=== PATIENT | male | born 1970 | race Caucasian/White ===

== ENCOUNTER 2020-11-17 09:42 | Outpatient (REF) | payer BC, SELFPAY ==
[2020-11-17 10:49] LABS: Alanine Aminotransferase 38 U/L (0-40); Blood Urea Nitrogen 29 mg/dL (9-16); Estimated Glomerular Filt Rate > 60
== END 2020-11-17 09:43 | disposition home or self-care (01) ==
LOC: HO.10HDL 09:42
PROVIDERS: Visit Provider Family Medicine
DX: E78.00 Pure hypercholesterolemia, unspecified (principal); Z79.899 Other long term (current) drug therapy
CPT/HCPCS: 36415; 82550; 82565; 84460; 84520

== ENCOUNTER 2020-12-09 07:11 | Day surgery (SDC) | payer BC, SELFPAY ==
--- NOTE | 2020-12-08 08:58 | HO.ANESPROP2 ---
Documented by User: Elizabeth Dias 12/08/20 08:58 HPI - Anesthesia Eval Consult details Narrative: 50yo M for Colonoscopy PMFSH Past Medical History Medical History Elevated cholesterol Social History Social History Smoking Status: Never smoker Second Hand Smoke Exposure: No Use of substances other than those prescribed or required for medical reasons: No Advance Directives: No Advance Directives Information Provided: Yes Meds Allergies Allergy/AdvReac Type Severity Reaction Status Date / Time codeine Allergy Mild Rash Verified 12/09/20 07:37 Home Medications Medication Instructions Recorded Confirmed Last Taken Type atorvastatin 1 tab PO DAILY 12/05/20 12/05/20 Unknown History Exam Exam Date and Time: December 08, 2020857 Assessment and Plan Assessment Anesthesia Assessment: Chart Reviewed Documented by User: Mona Villafuerte 12/09/20 07:55 PMFSH Past Medical History Medical History Elevated cholesterol Social History Social History Smoking Status: Never smoker Second Hand Smoke Exposure: No Use of substances other than those prescribed or required for medical reasons: No Advance Directives: No Advance Directives Information Provided: Yes Meds Allergies Allergy/AdvReac Type Severity Reaction Status Date / Time codeine Allergy Mild Rash Verified 12/09/20 07:37 Home Medications Medication Instructions Recorded Confirmed Last Taken Type atorvastatin 1 tab PO DAILY 12/05/20 12/05/20 Unknown History Exam Airway Mallampati Class: II TM Dist: >3cm Neck ROM: Full
[2020-12-08 10:56] VITALS: BMI 30.2
[2020-12-09 07:40] VITALS: BP 118/69; PULSE 76; RESP 16; TEMP 36.6; O2SAT 99; BMI 28.8
[2020-12-09] MEDS: Lactated Ringers 1,000 ML 100 ML IVCONT (07:46)
--- NOTE | 2020-12-09 09:31 | PM.OP ---
Brief Operative Note Date of Service: 12/09/20 Pre-op diagnosis: Screening Post-op diagnosis: other (Colon polyps) Procedure: Colonoscopy to cecum and TI with snare polypectomy Surgeon: Neymar Patel Anesthesia: MAC Estimated blood loss (mL): 2.0 Pathology: other (A. Ascending colon polyp B. Transverse colon polyp) Condition: stable Disposition: PACU
[2020-12-09 09:32] VITALS: BP 76/45; PULSE 68; RESP 16; TEMP 36.2; O2SAT 96
[2020-12-09 09:47] VITALS: BP 106/60; PULSE 71; RESP 16; TEMP 36.2; O2SAT 99
--- NOTE | 2020-12-09 10:06 | OP_ITS ---
SURGEON: eNymar Patel MD PREOPERATIVE DIAGNOSIS: Colorectal cancer screening. POSTOPERATIVE DIAGNOSIS: PROCEDURE PERFORMED: ESTIMATED BLOOD LOSS: COMPLICATIONS: ANESTHESIA: Monitored anesthesia care. ASSISTANTS: SPECIMENS: PROCEDURE: Colonoscopy to the cecum and terminal ileum with snare polypectomy. Full consent was obtained from him for this, including risks of bleeding and perforation. POSTOPERATIVE DIAGNOSES: Colorectal cancer screening, colon polyps, diverticulosis and internal hemorrhoids. DESCRIPTION OF PROCEDURE: The patient was placed in the left lateral decubitus position. The digital rectal exam revealed no abnormalities. The Olympus video pediatric colonoscope was entered into the rectum and advanced easily to the cecum. Once in the cecum, I did identify normal-appearing cecal pouch with appendiceal orifice and a normal-appearing ileocecal valve. The terminal ileum was cannulated and appeared normal. The scope withdrawn back in the colon. The entire cecum and ileocecal valve appeared normal. The scope was slowly withdrawn assessing all mucosal surfaces carefully. For the most part, preparation was excellent, although there were some small areas of some liquid stool, which were suctioned and irrigated away as best as possible. In the ascending colon and transverse colon were flat, but slightly raised polyps between 8 and 10 mm in diameter, which were each snared and recovered by suction. The polypectomy sites appeared clean, without any sign of residual polyp nor bleeding. I did not visualize any other polyps, colitis, nor angiodysplasia. There was a mild amount of sigmoid diverticulosis. In the rectum, scope was retroflexed visualizing internal hemorrhoids, but no other pathology. The rectal mucosa appeared normal. The scope was straightened and withdrawn from the patient. He tolerated the procedure well and was returned to recovery area in stable condition. IMPRESSION: 1. Colon polyps, status post snare polypectomy. 2. Diverticulosis. 3. Internal hemorrhoids. PLAN: The results of the pathology will be checked. If these are tubular adenoma, I would recommend a followup colonoscopy in 5 years. If they are only hyperplastic, I would recommend a followup colonoscopy in 10 years. He was advised not to use any aspirin and NSAIDs for 1 week. This has been discussed with his . MD VERNA Mittal/RONY / [id number] MOE
== END 2020-12-09 10:40 | disposition home or self-care (01) ==
PROVIDERS: PCP Family Medicine; Visit Provider Internal Medicine
PROC: 0DJD8ZZ Inspection of Lower Intestinal Tract, Via Natural or Artificial Opening Endoscopic (ICD-10-PCS; CPT 45378; principal; 2020-12-09 08:20)
DX: Z12.11 Encounter for screening for malignant neoplasm of colon (principal); D12.2 Benign neoplasm of ascending colon; D12.3 Benign neoplasm of transverse colon; K57.30 Diverticulosis of large intestine without perforation or abscess without bleeding; K64.8 Other hemorrhoids
CPT/HCPCS: 45385; 88305

== ENCOUNTER 2021-05-30 07:01 | Outpatient (REF) | payer BC, SELFPAY ==
[2021-05-30 11:57] LABS: Cholesterol 228 mg/dL; Glucose Fasting 96 mg/dL (60-99); HDL Cholesterol 46 mg/dL; LDL Cholesterol Calculated 166 mg/dl; Triglycerides 83 mg/dL
== END 2021-05-30 07:02 | disposition home or self-care (01) ==
LOC: HO.HMGCLDS 07:01
PROVIDERS: PCP Family Medicine; Visit Provider Family Medicine
DX: E78.00 Pure hypercholesterolemia, unspecified (principal); Z82.49 Family history of ischemic heart disease and other diseases of the circulatory system
CPT/HCPCS: 36415; 80061; 82947

== ENCOUNTER 2022-04-09 08:40 | Outpatient (REF) | payer BC, SELFPAY ==
[2022-04-09 13:04] LABS: Alanine Aminotransferase 64 U/L (0-40)
== END 2022-04-09 08:41 | disposition home or self-care (01) ==
LOC: HO.HMGCLDS 08:40
PROVIDERS: Visit Provider Family Medicine
DX: E78.00 Pure hypercholesterolemia, unspecified (principal); Z79.899 Other long term (current) drug therapy
CPT/HCPCS: 36415; 82550; 84460

== ENCOUNTER 2023-11-01 08:57 | Outpatient (REF) | payer BC, SELFPAY | END 2023-11-01 08:58 | disposition home or self-care (01) | LOC: HO.LAB 08:57 | PROVIDERS: PCP Family Medicine; Visit Provider Family Medicine | DX: E78.00 Pure hypercholesterolemia, unspecified (principal); Z79.01 Long term (current) use of anticoagulants | CPT/HCPCS: 36415; 82550; 84450; 84460 ==

== ENCOUNTER 2024-05-25 06:15 | Outpatient (REF) | payer BC, SELFPAY ==
[2024-05-25 10:38] LABS: Alanine Aminotransferase 30 U/L (0-40); Aspartate Amino Transferase 21 U/L (5-37); Cholesterol 149 mg/dL (<200); Glucose Fasting 104 mg/dL (60-99); Triglycerides 119 mg/dL (<150)
[2024-05-25 11:01] LABS: HDL Cholesterol 43 mg/dL (>40); LDL Cholesterol Calculated 83 mg/dL (<100)
== END 2024-05-25 06:16 | disposition home or self-care (01) ==
LOC: HO.HMGCLDS 06:15
PROVIDERS: PCP Family Medicine; Visit Provider Family Medicine
DX: E78.00 Pure hypercholesterolemia, unspecified (principal); Z79.899 Other long term (current) drug therapy; Z83.3 Family history of diabetes mellitus
CPT/HCPCS: 36415; 80061; 82550; 82947; 84450; 84460

== ENCOUNTER 2024-10-16 10:14 | Outpatient (AMB) | payer BC, SELFPAY ==
--- NOTE | 2024-10-16 10:11 | MHC.OFFVIS ---
Vital Signs 10/16/24 10:26 Height 5 ft 7 in Weight 201 lb BMI 31.5 BP 135/64 Blood Pressure Location Lt brachial Position Sitting Pulse 83 Intake Visit Reasons: cyst on back Intake Note: Patient is seen in office for evaluation of a cyst on the back. Pt c/o: onset yrs, increase in size, denies any redness, discharge or infection, discomfort to lay on it Industrial Cook Required: No Accompanied by: Self / Same As Patient Allergies codeine Allergy (Mild, Verified 10/16/24 10:25) Rash Medication List - Last Reconciled 10/16/24 by Chi Cloud MD atorvastatin 1 tab PO DAILY HPI Comments Details: 54-year-old male patient presenting with a skin cyst in the left back. He feels the cyst has been present for several years and has gradually increased in size. He reports his made him get it checked out. He denies a previous history of infections, bleeding or discharge from the site. [facility] Medical History Elevated cholesterol Social History Second Hand Smoke Exposure: No Review of Systems Const All systems reviewed & are unremarkable except as noted in HPI and below Denies chills, Denies fever(s), Denies headache(s), Denies poor appetite and Denies weakness ENT Denies headache(s) Card Denies chest pain, Denies irregular heart rhythm, Denies palpitations and Denies dyspnea Resp Denies cough, Denies excessive phlegm production and Denies dyspnea GI Denies abdominal pain, Denies bloating, Denies change in bowel habits, Denies constipation, Denies heartburn, Denies diarrhea, Denies nausea and Denies vomiting Denies difficulty urinating and Denies urinary frequency Musc Denies back pain, Denies muscle weakness and Denies numbness Skin/Breast Denies changing lesions and Denies unusual bruising Neuro Denies headache(s), Denies numbness, Denies paresthesias and Denies weakness Psych Denies anxiety and Denies depression Endo Denies palpitations Manjeet/Lymph Denies lymphadenopathy Physical Exam Const General: cooperative and no acute distress Nutritional Appearance: well nourished Orientation/consciousness: patient oriented x3 Limitations: no limitations HEENT Head: Yes normocephalic and Yes atraumatic Ears: hearing grossly normal bilaterally Resp Effort & Inspection: normal respiratory effort, no audible wheezes, no cough and no respiratory distress Cardio Jugular venous distension: no JVD GI Inspection: Yes normal to inspection Back/Spine/Pelvis Other: Left upper back with a 2 cm epidermal inclusion cyst with no evidence of abscess, erythema or tenderness. Back/spine/pelvis image: 1. 2 cm epidermal inclusion cyst left upper back. Skin Other: Warm, dry, no rash Neuro General: patient oriented x3 Extrem General: Yes no clubbing, cyanosis or edema Office Procedures Excision Details: Preoperative diagnosis: Epidermal inclusion cyst left upper back Postoperative diagnosis: Epidermal inclusion cyst left upper back Procedure: Excision of epidermal inclusion cyst left upper back Surgeon: Chi Cloud MD Bindery Machine Setter: None Anesthesia: Lidocaine 1% with epinephrine Indications for procedure: 2 cm epidermal inclusion cyst of left upper back Operative findings: Noninfected 2 cm epidermal inclusion cyst Specimen: Epidermal inclusion cyst left upper back Estimated blood loss: 1 mL Complications: None Procedure details: Patient was brought to the procedure room and placed in a prone position. The site of surgery was confirmed by the patient in the left upper back. After assuring informed consent the skin was prepped with Betadine and draped in a sterile fashion. Local anesthesia was then infiltrated in a transverse fashion. An elliptical incision oriented transversely was then created with a scalpel and carried out through subcutaneous tissue. Dissection was continued around the wall of the cyst and the cyst completely excised. This was sent to pathology for further examination. After assuring adequate hemostasis the skin was closed using interrupted 4-0 nylon sutures. Sterile dressings consisting of a 2 x 2 gauze and Tegaderm were then applied. The patient tolerated the procedure well and was discharged to home in stable condition. 96633-[id number]/arms/legs 1.1-2cm Procedure code (CPT) selection complete Assessment & Plan Assessment & Plan (1) Epidermal inclusion cyst: Code(s): L72.0 - Epidermal cyst Category: Medical Plan Status post excision of epidermal inclusion cyst today. The patient tolerated this well. He will return in 1 week for suture removal. Coding Level of Care Code New Pt Level 4 (82524) Diagnoses Epidermal inclusion cyst L72.0 CPT Codes Trunk/Arms/Legs - CPT: 82208-covxh/arms/legs 1.1-2cm ([id number])
--- OUTSIDE RECORDS SUMMARY | 2024-10-16 10:16 | XMS_ITS | Patient Health Record ---
Author Organization [facility] Address [address] [place] [id number] Care Team Providers Care Side Piece Coverer Name Role Phone Raul REYNOLDS, Cuco Primary Care Provider UnavailNeymar Lazar Unavailable [phone] ALLERGIES Allergen (clinical drug ingredient) Drug/Non Drug Allergy documented on EMR Reaction Allergy Type Onset Date Status codeine Codeine Sulfate Unknown Drug Allergy A ctive REASON FOR REFERRAL No Information MEDICATIONS Medication SIG (Take, Route, Frequency, Duration) Notes Start Date End Date Status CoQ10 Active Multivitamin Active Estroven Active Ibuprofen as needed Active Tylenol PM Extra Strength Active Ipamorelin Acetate A ctive Atorvastatin Calcium 20 MG TAKE 1 TABLET BY MOUTH ONCE DAILY Oral for 30 Active IMMUNIZATIONS Vaccine Route Administration Date Status Comme nts Influenza Unknown 07/28/2020 Administered SOCIAL HISTORY Tobacco Use: Social History Observation Description Date Details (start date - stop date) Never Smoker NA - NA Sex Assigned At : Social History Observation Description Sex Assigned At Unknown Tobacco Use/Smoking Question Answer Notes Patient is a nonsmoker Alcohol Screen Question Answer Notes Did you have a drink contain ing alcohol in the past year? Yes How often did you have a dri nk containing alcohol in the past year? Never (0 point) How many drinks did you have on a typical day when you were drinking in the past year? 1 or 2 drinks (0 point) How often did you have 6 or more drinks on one occasion in the past year? Never (0 point) Points 0 Interpretation Negative PROBLEMS Problem Type ICD Code Onset Dates Problem Status W/U Status Risk SNOMED Code Notes Problem Encounter for screening for malignant neoplasm of colon (Z12.11) Active confirmed Screening for malignant neoplasm of colon (701412688) Problem Preprocedural examination (Z01.818) Active confirmed Preprocedural examination (850260194365737 ) PLAN OF TREATMENT Future Test Test Name Order Date COLONOSCOPY 11/17/2020 Insurance Providers Payer Name Payer Address Payer Phone Subscriber Number Group Number Insured Name Patient Relationship to Insured Coverage Start Date Coverage End Date [facility] [address] [place], [place] [id number] [phone] [id number] 00 JP RODRÍGUEZ Self - patient is the insured MEDICAL (GENERAL) HISTORY Medical History History ICD Code Seeing a weight loss/hormone doctor [place] for weight loss-Dr. Hilton Denies [place],DM,CVA,Lung disease,renal dise ase Hyperlipidemia Surgical History Surgery Date(Month/Year)
[2024-10-16 10:26] VITALS: BP 135/64; PULSE 83; BMI 31.5
== END 2024-10-16 10:50 | disposition home or self-care (01) ==
PROVIDERS: PCP Family Medicine; Referring Provider Family Medicine; Visit Provider Surgery
DX: L72.0 Epidermal cyst (principal)
CPT/HCPCS: 11402; 99203

== ENCOUNTER 2024-10-16 10:14 | Outpatient (REF) | payer BC, SELFPAY | END 2024-10-16 10:15 | disposition home or self-care (01) | LOC: HO.LAB 10:14 | PROVIDERS: PCP Family Medicine; Referring Provider Family Medicine; Visit Provider Surgery | DX: L72.0 Epidermal cyst (principal) | CPT/HCPCS: 11402; 88304 ==

== ENCOUNTER 2024-10-27 10:34 | Outpatient (AMB) | payer BC, SELFPAY ==
--- OUTSIDE RECORDS SUMMARY | 2024-10-27 10:43 | XMS_ITS | Patient Health Record ---
Author Organization [facility] Address [address] [place] [id number] Care Team Providers Care Psychological Operations Specialist Name Role Phone Raul REYNOLDS, Cuco Primary Care Provider UnavailNeymar Lazar Unavailable [phone] ALLERGIES Allergen (clinical drug ingredient) Drug/Non Drug [...] confirmed Screening for malignant neoplasm of colon (093875779) Problem Preprocedural examination (Z01.818) Active confirmed Preprocedural examination (067099228632078 ) PLAN OF TREATMENT Future Test Test Name Order Date COLONOSCOPY 11/17/2020 Insurance Providers Payer Name Payer Address Payer Phone Subscriber Number Group Number Insured Name Patient Relationship to Insured Coverage Start Date Coverage End Date [facility] [address] [place], [place] [id number] 00 JP RODRÍGUEZ Self - patient is the insured MEDICAL (GENERAL) HISTORY Medical History History ICD Code Seeing a weight loss/[place] doctor [place] for weight loss-Dr. Hilton Denies [place],DM,CVA,Lung disease,renal dise ase Hyperlipidemia Surgical History Surgery Date(Month/Year)
[2024-10-27 10:46] VITALS: BMI 31.5
--- NOTE | 2024-10-27 10:46 | A.OFFVIS_ITS ---
Vital Signs 3 10/27/24 10:46 Height 5 ft 7 in Weight 201 lb BMI 31.5 Intake Visit Reasons: S/p WLE~ back (off proc) Intake Note: Patient is seen in office for suture removal, post excision of back cyst. Pt c/o: reports no complaints. Fabrication Lead Required: No Accompanied by: Self / Same As Patient Allergies codeine Allergy (Mild, Verified 10/27/24 10:46) Rash HPI Comments Details: 84-year-old male patient status post excision of an epidermal inclusion cyst of the posterior left shoulder 1 week ago. He tolerated the procedure well but does have some soreness from the sutures. He returns today for wound check. He denies any bleeding or discharge. [facility] Medical History Elevated cholesterol Surgical History (Updated 10/27/24 @ 10:51 by JOSE ALBERTO Johnson) History of excision of epidermal inclusion cyst (~10/16/24) Social History Second Hand Smoke Exposure: No Physical Exam Vital Signs: BMI result Body Mass Index 31.5 Const General: no acute distress Back/Spine/Pelvis Other: Excision site in the posterior left shoulder is clean, dry, and intact. Sutures removed and the wounds found to be well healed. Back/spine/pelvis image: 2 1. Excision site left posterior shoulder. Extrem Other: No edema Assessment & Plan Assessment & Plan (1) Epidermal inclusion cyst: Code(s): L72.0 - Epidermal cyst Category: Medical Plan Patient returns 1 week following excision of an epidermal inclusion cyst of the left posterior shoulder. He tolerated the procedure well the wounds are healing nicely. He should follow up as needed. Coding Level of Care Code Global (49522) Diagnoses Epidermal inclusion cyst L72.0
== END 2024-10-27 11:03 | disposition home or self-care (01) ==
PROVIDERS: PCP Family Medicine; Visit Provider Surgery
DX: L72.0 Epidermal cyst (principal)
CPT/HCPCS: 99024

== ENCOUNTER → 2024-10-27 10:34 | Outpatient (BNVA) | payer BC, SELFPAY | PROVIDERS: PCP Family Medicine; Visit Provider Surgery ==

== ENCOUNTER 2024-12-09 09:34 | Outpatient (REF) | payer BC, SELFPAY ==
--- OUTSIDE RECORDS SUMMARY | 2024-12-09 10:49 | XMS_ITS | Patient Health Record ---
Author Organization [facility] Address [address] [place] [id number] Care Team Providers Care Primary Care Md Name Role Phone Raul REYNOLDS, Cuco Primary Care Provider UnavailNeymar Lazar Unavailable [phone] ALLERGIES Allergen (clinical drug ingredient) Drug/Non Drug [...] confirmed Screening for malignant neoplasm of colon (059169892) Problem Preprocedural examination (Z01.818) Active confirmed Preprocedural examination (293673630078606 ) PLAN OF TREATMENT Future Test Test Name Order Date COLONOSCOPY 11/17/2020 Insurance Providers Payer Name Payer Address Payer Phone Subscriber Number Group Number Insured Name Patient Relationship to Insured Coverage Start Date Coverage End Date [facility] [address] [place], [place] [id number] 00 JP RODRÍGUEZ Self - patient is the insured MEDICAL (GENERAL) HISTORY Medical History History ICD Code Seeing a weight loss/hormone doctor [place] for weight loss-Dr. Hilton Denies [place],DM,CVA,Lung disease,renal dise ase Hyperlipidemia Surgical History Surgery Date(Month/Year)
[2024-12-09 11:14] LABS: Alanine Aminotransferase 89 U/L (0-40); Aspartate Amino Transferase 42 U/L (5-37)
== END 2024-12-09 09:35 | disposition home or self-care (01) ==
LOC: HO.LAB 09:34
PROVIDERS: PCP Family Medicine; Visit Provider Family Medicine
DX: E78.00 Pure hypercholesterolemia, unspecified (principal)
CPT/HCPCS: 36415; 82550; 84450; 84460

== ENCOUNTER 2025-02-12 10:48 | Outpatient (AMB) | payer BC, SELFPAY ==
--- NOTE | 2025-02-12 10:53 | A.OFFVIS_ITS ---
Vital Signs 3 02/12/25 10:59 Height 5 ft 7 in Weight 190 lb BMI 29.8 BP 118/63 Blood Pressure Location Lt brachial Position Sitting Pulse 76 Intake Visit Reasons: cyst on back Intake Note: Patient is seen in office for wound check, post excision of back cyst. Pt c/o: feels like there is a stitch in the area where the cyst was removed, denies discharge, redness and swelling Carpenter'S Helper Required: No Accompanied by: Self / Same As Patient Allergies codeine Allergy (Mild, Verified 02/12/25 10:59) Rash Medication List - Last Reconciled 02/12/25 by Chi Cloud MD atorvastatin 1 tab PO DAILY HPI Comments Details: 55-year-old male patient returning for follow-up examination after excision of a cyst of the left upper back on 10/16/2024. He reports feeling a stitch in the incision and reports some discomfort associated with this. He denies any bleeding or discharge. He was concerned that he may need a re-excision. [facility] Medical History Elevated cholesterol Surgical History History of excision of epidermal inclusion cyst (~10/16/24) Social History Second Hand Smoke Exposure: No Review of Systems Const All systems reviewed & are unremarkable except as noted in HPI and below Physical Exam Const General: comfortable Nutritional Appearance: well nourished Orientation/consciousness: patient oriented x3 Resp Effort & Inspection: normal respiratory effort Back/Spine/Pelvis Other: Excision site in the left upper back is clean, dry, and intact. No palpable sutures are identified. The incision is slightly thickened suggestive of a hypertrophic scar. No keloid is identified. No evidence of wound infection. Back/spine/pelvis image: 2 1. Hypertrophic scar left upper back Neuro General: patient oriented x3 Extrem General: No edema Assessment & Plan Assessment & Plan (1) Hypertrophic scar of skin: Code(s): L91.0 - Hypertrophic scar Category: Medical (2) Epidermal inclusion cyst: Code(s): L72.0 - Epidermal cyst Category: Medical Plan 55-year-old male patient returning for wound check after excision of an epidermal inclusion cyst of the left upper back on 10/16/2024. He feels a possible stitch of the incision however on examination the patient is found to have no stitch rather is noted to have hypertrophic scar which is a normal healing process. There was no evidence of keloid formation at this time. I recommended applying hydrocortisone cream to the wound which may help to soften the scar. He should follow up as needed. Coding Level of Care Code Est Pt Level 3 (78073) Diagnoses Hypertrophic scar of skin L91.0 Epidermal inclusion cyst L72.0
[2025-02-12 10:59] VITALS: BP 118/63; PULSE 76; BMI 29.8
--- OUTSIDE RECORDS SUMMARY | 2025-02-12 11:49 | XMS_ITS | Patient Health Record ---
Author Organization [facility] Address [address] [place] [address] Care Team Providers Care Log Roper Name Role Phone Raul REYNOLDS, Cuco Primary Care Provider UnavailNeymar Lazar Unavailable [phone] Allergies Allergen (clinical drug ingredient) Drug/Non Drug Allergy documented on EMR Reaction Allergy Type Onset Date Status codeine Codeine Sulfate Unknown Drug Allergy A ctive Reason For Referral No Information Medications Medication SIG (Take, Route, Frequency, Duration) Notes Start Date End Date Status CoQ10 Active Multivitamin Active Estroven Active Ibuprofen as needed Active Tylenol PM Extra Strength Active Ipamorelin Acetate A ctive Atorvastatin Calcium 20 MG TAKE 1 TABLET BY MOUTH ONCE DAILY Oral for 30 Active Immunizations Vaccine Route Administration Date Status Comme nts Influenza Unknown 07/28/2020 Administered Social History Tobacco Use: Social History Observation Description Date Details (start date - stop date) Never Smoker NA - NA Tobacco Use/Smoking Question Answer Notes Patient is [...] Never (0 point) Points 0 Interpretation Negative Section Notes: Nonsmoker; no sig alcohol Problems Problem Type SNOMED Code ICD Code Onset Dates Problem Status W/U Status Risk Notes Problem Screening for malignant neoplasm of colon (455639169) Encounter for screening for malignant neoplasm of colon (Z12.11) Active confirmed Problem Preprocedural examination (694476896589265) Preprocedural examination (Z01.818) Active confirmed Plan Of Treatment Future Test Test Name Order Date COLONOSCOPY 11/17/2020 Insurance Providers Payer Name Payer Address Payer Phone Subscriber Number Group Number Insured Name Patient Relationship to Insured Coverage Start Date Coverage End Date [facility] [address] [place], [place] [id number] 00 JP RODRÍGUEZ Self - patient is the insured Medical (General) History Medical History History ICD Code Seeing a weight loss/[place]ormone doctor [place] for weight loss-Dr. Hilton Denies [place],DM,CVA,Lung disease,renal dise ase Hyperlipidemia Surgical History Surgery Date(Month/Year)
== END 2025-02-12 11:28 | disposition home or self-care (01) ==
LOC: HO.HGS 10:48
PROVIDERS: PCP Family Medicine; Visit Provider Surgery
DX: L91.0 Hypertrophic scar (principal); L72.0 Epidermal cyst
CPT/HCPCS: 99213

== ENCOUNTER → 2025-02-12 10:48 | Outpatient (BNVA) | payer BC, SELFPAY | PROVIDERS: PCP Family Medicine; Visit Provider Surgery ==

== ENCOUNTER 2025-06-30 08:41 | Outpatient (REF) | payer BC, SELFPAY ==
[2025-06-30 10:42] LABS: Alanine Aminotransferase 42 U/L (0-40); Albumin Level 4.8 g/dL (3.5-5.0); Alkaline Phosphatase 65 U/L (39-117); Anion Gap 10 (12-20); Aspartate Amino Transferase 32 U/L (5-37); Blood Urea Nitrogen 36 mg/dL (9-16); Calcium 9.6 mg/dL (8.4-10.2); Carbon Dioxide 30 mmol/L (22-29); Chloride 105 mmol/L (96-108); Cholesterol 280 mg/dL (<200); Estimated Glomerular Filt Rate > 60; HDL Cholesterol 46 mg/dL (>40); Potassium 4.6 mmol/L (3.3-5.1); Sodium 140 mmol/L (135-145); Total Protein 7.2 g/dL (6.5-8.0); Triglycerides 108 mg/dL (<150)
[2025-06-30 11:06] LABS: Prostate Specific Antigen 0.40 ng/mL (<0.05-4.0)
== END 2025-06-30 08:42 | disposition home or self-care (01) ==
LOC: HO.LAB 08:41
PROVIDERS: PCP Physician Assistant; Visit Provider Physician Assistant
DX: E78.00 Pure hypercholesterolemia, unspecified (principal); L91.0 Hypertrophic scar; Z79.899 Other long term (current) drug therapy; Z12.5 Encounter for screening for malignant neoplasm of prostate
CPT/HCPCS: 36415; 80048; 80061; 80076; 84153; 96127

== ENCOUNTER 2025-06-30 08:41 | Outpatient (AMB) | payer BC, SELFPAY ==
--- NOTE | 2025-06-30 08:58 | A.OFFPC_ITS ---
Vital Signs 06/30/25 09:01 Height 5 ft 7 in Weight 78.471 kg BMI 27.1 BP 128/82 Respiration 14 Pulse 69 Pulse Source Pulse Oximeter Temp 97.4 F Temp Source Temporal Artery Scan Pulse Oximetry (%) 99 Oxygen Delivery Method Room Air Intake Visit Reasons: routine - Dr. Carter Front End Mechanic Required: No Accompanied by: Self / Same As Patient Allergies codeine Allergy (Mild, Verified 06/30/25 08:58) Rash Medication List - Last Reconciled 06/30/25 by SONNY Sharpe atorvastatin 20 mg PO DAILY hydrocortisone 1% (Anti-Itch (hydrocortisone)) 1 appl topical BID PRN Tobacco use date assessed: 06/30/25 Dental Screening Dental Screen Date: 06/30/25 Did you have a dental visit in the last 12 months?: No Did you have a dental problem in the last 6 months where you did not have access to dental care?: No Was dental information given to patient?: No HPI HPI Comments History of Present Illness Details 85-year-old male with history of hyperli pidemia and epidermal inclusion cyst of the back presents to the office today for management of chronic conditions and to establish care. Hyperlipidemia-overdue for lipid panel. On atorvastatin 20 mg daily. Compliant with low-fat diet Epidermal inclusion cyst of the upper back-excised by General surgery 09/2024. He reports since then, the area is very itchy and he feels as if there is priyanka ething inside there any questions or retained suture. Concerns: None Health Maintenance: Due for PSA Last screening colonoscopy 11/2020 with 5 year follow-up advised due to tubular adenoma Advised to decrease caffeine intake ROS: General: No fevers, malaise, unintentional weight loss HEENT: No blurred vision, diplopia. No sore throat, nasal congestion, rhinorrhea, sinus pain, ear pain Cardiovascular: No chest pain, palpitations, or leg edema Respiratory: No shortness of breath, wheezing, cough GI: No abdominal pain, nausea, vomiting, diarrhea, constipation, melena, hematochezia : No dysuria, hematuria, increased urinary frequency, decreased urinary output MSK: No myalgia, back pain Neuro: No headaches, weakness, paresthesias Skin: No rashes or lesions. See HPI EXAM: Constitutional - Awake and Alert, No apparent distress Eyes - PERRL Cardiovascular - S1S2, RRR, No edema Respiratory - Normal lung expansion, Normal respiratory effort, No respiratory distress, CTA bilaterally Extremities - no calf tenderness bilaterally, no swelling Skin - Warm/Dry. 2cm keloid scar of the L upper back Neurological - Alert & oriented x3 Psychological - Appropriate affect [facility] Medical History (Updated 06/30/25 @ 09:24 by SONNY Sharpe) Elevated cholesterol Surgical History History of excision of epidermal inclusion cyst (~10/16/24) Social History Housing: Apartment Patient Tobacco Use Status: Never used Tobacco e-Cigarette/Vaping Use: Never Used Second Hand Smoke Exposure: No service: No Current occupational status: employed Cognitive needs: No Hearing needs: No Vision needs: Yes (Reading glasses) Questionnaire PHQ-9 Over the last 2 weeks, how often have you been bothered by any of the following problems? 1. Little interest or pleasure in doing things: not at all 2. Feeling down, depressed, or hopeless: not at all 3. Trouble falling or staying asleep, or sleeping too much: nearly every day 4. Feeling tired or having little energy: more than half the days 5. Poor appetite or overeating: not at all 6. Feeling bad about yourself - or that you are a failure or have let yourself or your family down: not at all 7. Trouble concentrating on things, such as reading the newspaper or watching television: not at all 8. Moving or speaking so slowly that other people could have noticed. Or the opposite - being so fidgety or restless that you have been moving around a lot more than usual: not at all 9. Thoughts that you would be better off or of hurting yourself in some way: not at all Total score: 5 Source: Developed by Drs. Neymar Alvarez, Britney Ken, Dk Hatfield and colleagues, with an educational aurora from [employer]. Thrive Questionnaire Date Thrive assessed: 06/30/25 I am a: Patient What is your living situation today?: I have a steady place to live Within the past 12 months, did the food you bought not last and you didn't have the money to get more?: Never true Within the past 12 months, did you worry whether your food would run out before you got money to buy more?: Never true Do you have trouble paying for medicines?: No Do you have trouble getting transportation to medical appointments?: No Do you have trouble paying your heating and electricity bill?: No Do you have trouble taking care of your child, family member or friend?: No Do you have trouble with day-to-day activities such as bathing, preparing meals, shopping, managing finances, etc.?: No Are you currently unemployed and looking for a job?: No Are you interested in more education?: No Please select the resources that you would like help with: None THRIVE Score: 0 RUTH-7 AMB Questionnaire RUTH-7 Date RUTH - 7 assessed: 06/30/25 Feeling nervous, anxious, or on edge: 0 = Not at all Not being able to stop or control worryin = Not at all Worrying too much about different things: 0 = Not at all Trouble relaxin = Not at all Being so restless that it is hard to sit still: 2 = More than half the days Becoming easily annoyed or irritable: 0 = Not at all Feeling afraid as if something awful might happen: 0 = Not at all Total RUTH-7 score (0-4 normal; 5-9 mild; 10-14 moderate; 15-21 severe): 2 Source: Developed by Drs. Neymar Alvarez, Britney Ken, Dk Hatfield and colleagues, with an educational aurora from [employer]. Physical exam (Primary Care) Vital Signs: Last Vital Signs Temp 97.4 F 06/30/25 09:01 Pulse 69 06/30/25 09:01 Resp 14 06/30/25 09:01 BP 128/82 06/30/25 09:01 Pulse Ox 99 06/30/25 09:01 Oxygen Delivery Method Room Air 06/30/25 09:01 BMI result Body Mass Index 27.1 Tobacco/Smoking Status: Tobacco use Status Tobacco use date assessed 06/30/25 06/30/25 09:04 Patient Tobacco Use Status Never used Tobacco 06/30/25 09:04 e-Cigarette/Vaping Use Never Used 06/30/25 09:04 Coding Level of Care Code New Pt Level 4 (08865) Diagnoses Epidermal inclusion cyst L72.0 Keloid scar L91.0 Elevated cholesterol E78.00 Assessment & Plan Assessment & Plan (1) Epidermal inclusion cyst: Code(s): L72.0 - Epidermal cyst Category: Medical Plan: Successful excision 09/2024. Resulting hypertrophic scar. Referred to Dermatology, but advised to reach out to General surgery as well. Last gen surg note reviewed (2) Keloid scar: Code(s): L91.0 - Hypertrophic scar Category: Medical Plan: Prescription for hydrocortisone cream provided to patient. Referred to Dermatology for further evaluation and management (3) Elevated cholesterol: Code(s): E78.00 - Pure hypercholesterolemia, unspecified Category: Medical Plan: Lipid panel ordered. Continue atorvastatin and diet low in saturated fats and highly processed foods Plan Follow-up in the office in 6 months. Labs to be completed today as well as several days prior to next visit. Orders: Orders Basic Metabolic Panel Today E78.00 - Pure hypercholesterolemia, unspecified Lipid Panel Today E78.00 - Pure hypercholesterolemia, unspecified Basic Metabolic Panel 6 Months E78.00 - Pure hypercholesterolemia, unspecified, L72.0 - Epidermal cyst, R74.01 - Elevation of levels of liver transaminase levels Lipid Panel 6 Months E78.00 - Pure hypercholesterolemia, unspecified, L72.0 - Epidermal cyst, R74.01 - Elevation of levels of liver transaminase levels Liver Panel Today E78.00 - Pure hypercholesterolemia, unspecified Prostate Specific Antigen Today Z12.5 - Encounter for screening for malignant neoplasm of prostate Liver Panel 6 Months E78.00 - Pure hypercholesterolemia, unspecified, L72.0 - Epidermal cyst, R74.01 - Elevation of levels of liver transaminase levels Referrals Dermatology Referral E78.00 - Pure hypercholesterolemia, unspecified, L72.0 - Epidermal cyst, L91.0 - Hypertrophic scar, Z12.5 - Encounter for screening for malignant neoplasm of prostate Medications: New hydrocortisone 1% (Anti-Itch (hydrocortisone)) 1 appl topical BID PRN 28.35 grams 1RF skin irritation
[2025-06-30 09:01] VITALS: BP 128/82; PULSE 69; RESP 14; TEMP 36.3; O2SAT 99; BMI 27.1
--- OUTSIDE RECORDS SUMMARY | 2025-06-30 09:10 | XMS_ITS | Patient Health Record ---
Author Organization [facility] Address [address] [place] [address] Care Team Providers Care Film Recordist Name Role Phone Raul (RETIRED) Cuco REYNOLDS Primary Care Provider Unavailable Neymar Patel Unavailable [phone] Allergies Allergen (clinical drug ingredient) Drug/Non Drug [...] Problem Status W/U Status Risk Notes Problem Encounter for screening for malignant neoplasm of colon (Z12.11) Active confirmed Problem Preprocedural examination (573903212719891) Preprocedural examination (Z01.818) Active confirmed Plan Of Treatment Future Test Test Name Order Date COLONOSCOPY 11/17/2020 Next Appt Details Provider Name:Neymar Patel , 10/08/2025 02:20:00 PM, [address], [address], [place], [address], Insurance Providers Payer Name Payer Address Payer Phone Subscriber Number Group Number Insured Name Patient Relationship to Insured Coverage Start Date Coverage End Date [facility] [address] [place], [place] [id number] [phone] [id number] JP RODRÍGUEZ Self - patient is the insured Medical (General) History Medical History History ICD Code Seeing a weight loss/hormone doctor [place] for weight loss-Dr. Hilton Denies [place],DM,CVA,Lung disease,renal dise ase Hyperlipidemia Surgical History Surgery Date(Month/Year)
== END 2025-06-30 09:23 | disposition home or self-care (01) ==
LOC: HO.HMCHD 08:42
PROVIDERS: PCP Family Medicine; Visit Provider Physician Assistant
DX: L72.0 Epidermal cyst (principal); L91.0 Hypertrophic scar; E78.00 Pure hypercholesterolemia, unspecified

== ENCOUNTER 2025-08-27 09:06 | Outpatient (REF) | payer BC, SELFPAY ==
--- OUTSIDE RECORDS SUMMARY | 2025-08-27 09:53 | XMS_ITS | Patient Health Record ---
Author Organization [facility] Address [address] [place] [address] Care Team Providers Care Housing Inspector Name Role Phone Raul (RETIRED) Cuco REYNOLDS Primary Care Provider Unavailable Neymar Patel Unavailable [phone] Allergies Allergen (clinical drug ingredient) Drug/Non Drug [...] TAKE 1 TABLET BY MOUTH ONCE DAILY Oral; Duration: 30 Active Immunizations Vaccine Route Administration Date [...] Problem Screening for malignant neoplasm of colon (390039909) Encounter for screening for malignant neoplasm of colon (Z12.11) Active confirmed Problem Preprocedural examination (032504466004084) Preprocedural examination (Z01.818) Active confirmed Plan Of Treatment Future Test Test Name Order Date COLONOSCOPY 11/17/2020 Next Appt Details Provider Name:Neymar Patel , 10/08/2025 02:20:00 PM, [address] [place] [address], [address], [place], [address], Insurance Providers Payer Name Payer Address Payer Phone Subscriber Number Group Number Insured Name Patient Relationship to Insured Coverage Start Date Coverage End Date [facility] [address] [place], [place] [id number] [phone] [id number] JP RODRÍGUEZ Self - patient is the insured Medical (General) History Medical History History ICD Code Seeing a weight loss/[place]orm[place] doctor [place] for weight loss-Dr. Hilton Denies [place],DM,CVA,Lung disease,renal dise ase Hyperlipidemia Surgical History Surgery Date(Month/Year)
[2025-08-27 11:20] LABS: Cholesterol 136 mg/dL (<200); HDL Cholesterol 41 mg/dL (>40); Triglycerides 66 mg/dL (<150)
== END 2025-08-27 09:07 | disposition home or self-care (01) ==
LOC: HO.HMGCLDS 09:06
PROVIDERS: PCP Physician Assistant; Visit Provider Physician Assistant
DX: E78.00 Pure hypercholesterolemia, unspecified (principal)
CPT/HCPCS: 36415; 80061